=== PATIENT | male | born 1935 | race Caucasian/White ===

== ENCOUNTER 2017-09-27 02:18 | Inpatient (IN) | payer MEDICARE, OTHER ==
[~2017-09-27] VITALS: Ht 175.3 cm; Wt 103.3 kg
[2017-09-27] VITALS (11 sets, daily range): BP systolic 80–127; BP diastolic 53–75
[~2017-09-27 02:18] MED LIST: ATOR10TA87 PO; CARV-49 PO; CLOP75TA35 PO; FENO145T38 PO; FURO40TA4 PO; HYDR-565 PO; ISOS30TA9 PO; OMEP20TA5 PO; POTA10TA36 PO
[2017-09-27] MEDS ORDERED: fentaNYL/PF 50MCG/1 ML 2ML syringe IV ONE (03:45)
[2017-09-27] MEDS ORDERED: etomidate 2mg/ml inj. IV ONE (03:45)
[2017-09-27] MEDS ORDERED: rocuronium 10mg/ml inj IV ONE (03:45)
[2017-09-27] MEDS ORDERED: MIDAZolam 5mg/ml 2ml vial IV ONE (03:45)
[2017-09-27] MEDS ORDERED: midazolam 100mg in NS 100ml 100 ML IV ONE (03:45)
[2017-09-27] MEDS ORDERED: normal saline 1000ML IV soln IVB ONE (03:45)
[2017-09-27] MEDS ORDERED: tranexamic acid inj. 1,000 MG in normal saline 100ml IV soln 90 ML IV ONE (03:50)
[2017-09-27 04:24] LABS: CLARITY,URINE CLOUDY (Clear); COLOR,URINE YELLOW (Yellow); GLUCOSE, URINE NEGATIVE (Neg); KETONES,URINE NEGATIVE (Neg); LEUKOCYTE ESTERASE ,URINE LARGE (Neg); NITRITES, URINE POSITIVE (Neg); OCCULT BLOOD,URINE LARGE (Neg); PH,URINE 5.5 (4.8-8.0); PROTEIN,URINE 100 mg/dl (Neg); UROBILINOGEN,URINE >=8.0 E.U/dL (0.2-1.0)
[2017-09-27 04:31] LABS: UA COLLECTION TYPE NON-SPECIFIED
[2017-09-27 04:33] LABS: BACTERIA,URINE 4+ /HPF (Neg); RBC,URINE TNTC /HPF (0-2); SQUAMOUS EPITHELIAL CELL,UR FEW /LPF (FEW); WBC,URINE TNTC /HPF (0-4)
[2017-09-27 04:36] LABS: ABG BASE EXCESS 0.1 mmol/L (-2.0-3.0); ABG HCO3 29.4 mmol/L (22.0-26.0); ABG OXYGEN SATURATION 98.8 % (95-98); ABG PH (T) 7.244 (7.350-7.450); ABG PO2 (T) 172.5 mmHg (83-108); ALLEN'S TEST Positive; FCOHb 0.9 % (0.5-1.5); FMetHb 0.3 % (0.3-1.12); FO2Hb 97.6 % (94-100); MINUTE VOLUME 6 L/min; PATIENT TEMPERATURE 36.4; PEEP 5 cm H2O; RESPIRATORY RATE 14 b/min; RESPIRATORY RATE (OBSERVED) 14 b/min; TIDAL VOLUME 450 mL; TOTAL HEMOGLOBIN 13.9 G/dl (14.0-18.0)
[2017-09-27 04:37] LABS: ALANINE AMINOTRANSFERASE 42 U/L (12-78); ALBUMIN/GLOBULIN RATIO 0.7 (1.1-1.5); ALKALINE PHOSPHATASE 316 IU/L (46-116); ANION GAP 9 (8-16); ASPARTATE AMINO TRANSFERASE 47 U/L (10-37); BILIRUBIN,TOTAL 2.1 MG/DL (0.1-1.0); BLOOD UREA NITROGEN 19 MG/DL (7-18); BUN/CREATININE RATIO 16.2 (5.4-32.0); CALCIUM 9.4 MG/DL (8.5-10.1); CHLORIDE 101 MMOL/L (99-107); CREATININE 1.17 MG/DL (0.60-1.10); GLUCOSE 123 MG/DL (70-104); MAGNESIUM 1.6 MG/DL (1.5-2.4); POTASSIUM 3.6 MMOL/L (3.5-5.1); SODIUM 144 MMOL/L (135-145); TOTAL CARBON DIOXIDE 34.2 MMOL/L (24-32); TOTAL PROTEIN 7.2 G/DL (6.4-8.2); eGFR 60 ML/MIN
[2017-09-27] MEDS ORDERED: tranexamic acid 100mg/ml inj. ONE (04:42)
[2017-09-27 04:55] LABS: OCCULT BLOOD STOOL NEGATIVE (Neg)
[2017-09-27 04:57] LABS: BASOPHILS % (AUTO) 0 % (0-1); EOSINOPHILS % (AUTO) 0.5 % (0-6); HEMATOCRIT 39.5 % (42.0-52.0); HEMOGLOBIN 13.2 g/dl (14.0-17.9); LYMPHOCYTES # (AUTO) 0.1 X10'3 (1.1-4.8); LYMPHOCYTES % (AUTO) 5.3 % (21-51); MEAN CORPUSCULAR HEMOGLOBIN 31.4 PG (27.0-31.0); MEAN CORPUSCULAR HGB CONC 33.4 % (33.0-36.5); MEAN PLATELET VOLUME 8.5 FL (7.4-10.4); MONOCYTES % (AUTO) 0.4 % (2-12); NEUTROPHILS # (AUTO) 1.5 X10'3 (1.8-7.7); NEUTROPHILS % (AUTO) 93.8 % (42-75); PLATELET COUNT 82 X10'3 (140-440); WHITE BLOOD COUNT 1.6 X10'3 (4.5-11.0)
[2017-09-27 05:12] LABS: PLATELET ESTIMATE DECREASED; TOTAL CELLS COUNTED 50
[2017-09-27 05:13] LABS: ANISOCYTOSIS 1+; POIKILOCYTOSIS 1+; TOXIC VACUOLATION 2+
[2017-09-27] MEDS ORDERED: acetaminophen 650mg rectal suppository RC ONE (05:25)
[2017-09-27] MEDS ORDERED: acetaminophen 325mg rectal suppository RC ONE (05:25)
[2017-09-27] MEDS ORDERED: vancomycin/NS 1 GM ADD-VANTAGE 250 ML IV ONE (05:30)
[2017-09-27] MEDS ORDERED: piperacillin/tazo 3.375gm/50ml 50 ML IV ONE (05:30)
[2017-09-27] MEDS ORDERED: normal saline 1000ml 1,000 ML IV ONE (05:30)
[2017-09-27] MEDS ORDERED: normal saline 1000ML IV soln IV ONE (05:30)
[2017-09-27] MEDS ORDERED: sodium phosphate inj. 15 MMOL in dextrose 5%-water 150 ML IV PRN (06:25)
[2017-09-27] MEDS ORDERED: magnesium 2GM in 50ml NS 50 ML IV PRN (06:25)
[2017-09-27] MEDS ORDERED: acetaminophen 650mg rectal suppository RC PRN (06:25)
[2017-09-27] MEDS ORDERED: ipratropium/albuterol 3ml nebule NEB PRN (06:25)
[2017-09-27] MEDS ORDERED: ondansetron/PF 4mg/2ml inj IV PRN (06:25)
[2017-09-27] MEDS ORDERED: acetaminophen 325mg tablet PO PRN (06:25)
[2017-09-27] MEDS ORDERED: sodium phosphate inj. 30 MMOL in dextrose 5%-water 250 ML IV PRN (06:25)
[2017-09-27] MEDS ORDERED: magnesium 4gm in 100ml NS 100 ML IV PRN (06:25)
[2017-09-27] MEDS: ipratropium/albuterol 3ml nebule NEB SCH ×5 (07:00→23:22)
[2017-09-27] MEDS: piperacillin/tazo 3.375gm/50ml 50 ML IV SCH ×3 (07:07→19:49)
[2017-09-27] MEDS: NORepinephrine 8mg/ 250ml NS 250 ML IV SCH ×4 (07:13→23:30)
[2017-09-27] MEDS: docusate sodium 100mg/10ml UD cup PO SCH ×2 (07:31→19:48)
[2017-09-27] MEDS: pantoprazole 40 MG vial IV SCH (07:31)
[2017-09-27] MEDS: normal saline 1000ml 1,000 ML IV SCH ×3 (07:32→19:22)
[2017-09-27 07:35] LABS: INR 1.2 INR; PARTIAL THROMBOPLASTIN TIME 27 SECONDS (22-32); PROTHROMBIN TIME 11.9 SECONDS (9.0-12.0)
[2017-09-27 08:35] LABS: ABG BASE EXCESS -3.6 mmol/L (-2.0-3.0); ABG HCO3 24.1 mmol/L (22.0-26.0); ABG OXYGEN SATURATION 90.6 % (95-98); ABG PCO2 (T) 56.1 mmHg (35.0-48.0); ABG PH (T) 7.253 (7.350-7.450); ABG PO2 (T) 69.3 mmHg (83-108); FCOHb 0.7 % (0.5-1.5); FMetHb 0.1 % (0.3-1.12); FO2Hb 89.9 % (94-100); MINUTE VOLUME 9 L/min; PATIENT TEMPERATURE 37.5; PEEP 5 cm H2O; RESPIRATORY RATE 20 b/min; RESPIRATORY RATE (OBSERVED) 19 b/min; TIDAL VOLUME 450 mL; TOTAL HEMOGLOBIN 12.6 G/dl (14.0-18.0)
[2017-09-27] MEDS ORDERED: normal saline 1000ml 100 ML IV PRN (08:36)
[2017-09-27] MEDS ORDERED: normal saline 1000ml 250 ML IV PRN (08:36)
[2017-09-27] MEDS ORDERED: heparin 1,000 units/ml 10ml inj HE ONE ×2 (08:40)
[2017-09-27] MEDS ORDERED: epoetin 20,000 units/ml inj IV ONE (08:40)
[2017-09-27] MEDS ORDERED: APIX5TAB3 PO (10:41)
[2017-09-27] MEDS ORDERED: rocuronium bromide 100mg/10ml (10mg/ml) injection IV ONE (11:00)
[2017-09-27] MEDS ORDERED: etomidate 2mg/ml inj. ONE (11:00)
[2017-09-27] MEDS: FENTANYL-0.9 % NACL/PF 100 ML IV PRN (13:06)
[2017-09-27] MEDS: lactobacillus rhamnosus 10,000 MMU CELLS/CAPSULE PO SCH (19:49)
[2017-09-28] VITALS (23 sets, daily range): BP systolic 90–124; BP diastolic 60–85
[2017-09-28 02:20] LABS: ABG BASE EXCESS -4.8 mmol/L (-2.0-3.0); ABG HCO3 21.1 mmol/L (22.0-26.0); ABG OXYGEN SATURATION 97.6 % (95-98); ABG PCO2 (T) 42.6 mmHg (35.0-48.0); ABG PH (T) 7.315 (7.350-7.450); ABG PO2 (T) 102.5 mmHg (83-108); ALLEN'S TEST Positive; FCOHb 0.5 % (0.5-1.5); FMetHb 0.1 % (0.3-1.12); MINUTE VOLUME 11 L/min; PATIENT TEMPERATURE 37.3; PEEP 5 cm H2O; RESPIRATORY RATE 22 b/min; RESPIRATORY RATE (OBSERVED) 22 b/min; TIDAL VOLUME 450 mL; TOTAL HEMOGLOBIN 13.3 G/dl (14.0-18.0)
[2017-09-28] MEDS: ipratropium/albuterol 3ml nebule NEB SCH ×6 (02:24→22:28)
[2017-09-28 02:38] LABS: BASOPHILS % (AUTO) 0.1 % (0-1); EOSINOPHILS % (AUTO) 0.1 % (0-6); HEMATOCRIT 36.9 % (42.0-52.0); HEMOGLOBIN 12.1 g/dl (14.0-17.9); LYMPHOCYTES # (AUTO) 0.6 X10'3 (1.1-4.8); LYMPHOCYTES % (AUTO) 4.7 % (21-51); MEAN CORPUSCULAR HEMOGLOBIN 31.1 PG (27.0-31.0); MEAN CORPUSCULAR HGB CONC 32.7 % (33.0-36.5); MEAN CORPUSCULAR VOLUME 95.2 FL (78-98); MEAN PLATELET VOLUME 9.9 FL (7.4-10.4); MONOCYTES # (AUTO) 0.7 X10'3 (0-0.9); MONOCYTES % (AUTO) 5.3 % (2-12); NEUTROPHILS # (AUTO) 11.7 X10'3 (1.8-7.7); NEUTROPHILS % (AUTO) 89.8 % (42-75); PLATELET COUNT 110 X10'3 (140-440); RED BLOOD COUNT 3.88 X10'6 (4.70-6.10); RED CELL DISTRIBUTION WIDTH 17.4 % (11.5-14.5)
[2017-09-28 02:48] LABS: INR 1.3 INR; PARTIAL THROMBOPLASTIN TIME 33 SECONDS (22-32); PROTHROMBIN TIME 13.4 SECONDS (9.0-12.0)
[2017-09-28] MEDS: piperacillin/tazo 3.375gm/50ml 50 ML IV SCH ×4 (02:48→19:02)
[2017-09-28 02:52] LABS: ALANINE AMINOTRANSFERASE 49 U/L (12-78); ALBUMIN 2.1 G/DL (3.4-5.0); ALKALINE PHOSPHATASE 109 IU/L (46-116); ANION GAP 12 (8-16); ASPARTATE AMINO TRANSFERASE 62 U/L (10-37); BILIRUBIN,TOTAL 5.7 MG/DL (0.1-1.0); BLOOD UREA NITROGEN 21 MG/DL (7-18); BUN/CREATININE RATIO 13.2 (5.4-32.0); CALCIUM 7.9 MG/DL (8.5-10.1); CHLORIDE 110 MMOL/L (99-107); CREATININE 1.59 MG/DL (0.60-1.10); GLUCOSE 111 MG/DL (70-104); MAGNESIUM 1.3 MG/DL (1.5-2.4); POTASSIUM 3.9 MMOL/L (3.5-5.1); SODIUM 146 MMOL/L (135-145); TOTAL CARBON DIOXIDE 24.4 MMOL/L (24-32); eGFR 42 ML/MIN
[2017-09-28 03:14] LABS: PHOSPHORUS 4.3 MG/DL (2.3-4.5)
[2017-09-28 03:15] LABS: ALBUMIN/GLOBULIN RATIO 0.7 (1.1-1.5); TOTAL PROTEIN 5.3 G/DL (6.4-8.2)
[2017-09-28] MEDS: midazolam 100mg in NS 100ml 100 ML IV PRN (04:33)
[2017-09-28 05:14] LABS: ANISOCYTOSIS 1+; BURR CELLS FEW; PLATELET ESTIMATE DECREASED; POLYCHROMASIA FEW; TOTAL CELLS COUNTED 100
[2017-09-28] MEDS: normal saline 1000ml 1,000 ML IV SCH ×3 (05:42→18:43)
[2017-09-28] MEDS: NORepinephrine 8mg/ 250ml NS 250 ML IV SCH ×2 (05:42→16:48)
[2017-09-28] MEDS: mineral oil/petrolatum ophthal oint EACHEYE SCH ×3 (07:17→19:02)
[2017-09-28] MEDS: lactobacillus rhamnosus 10,000 MMU CELLS/CAPSULE PO SCH ×2 (07:17→19:02)
[2017-09-28] MEDS: docusate sodium 100mg/10ml UD cup PO SCH ×2 (07:17→19:02)
[2017-09-28] MEDS: pantoprazole 40 MG vial IV SCH (07:17)
[2017-09-28] MEDS: hydrocortisone sod succ/PF 100mg/2ml inj. IV SCH ×2 (13:44→19:02)
[2017-09-28] MEDS: FENTANYL-0.9 % NACL/PF 100 ML IV PRN (14:38)
[2017-09-28] MEDS ORDERED: VANCOMYCIN LEVEL IV NR (20:30)
[2017-09-29] VITALS (24 sets, daily range): BP systolic 79–106; BP diastolic 59–97
[2017-09-29] MEDS: hydrocortisone sod succ/PF 100mg/2ml inj. IV SCH ×4 (01:09→19:40)
[2017-09-29] MEDS: mineral oil/petrolatum ophthal oint EACHEYE SCH ×4 (01:09→19:40)
[2017-09-29] MEDS: piperacillin/tazo 3.375gm/50ml 50 ML IV SCH ×4 (01:09→19:40)
[2017-09-29 02:09] LABS: BASOPHILS % (AUTO) 0.1 % (0-1); EOSINOPHILS % (AUTO) 0.1 % (0-6); HEMATOCRIT 33.8 % (42.0-52.0); HEMOGLOBIN 11.3 g/dl (14.0-17.9); LYMPHOCYTES # (AUTO) 0.3 X10'3 (1.1-4.8); LYMPHOCYTES % (AUTO) 3.8 % (21-51); MEAN CORPUSCULAR HEMOGLOBIN 31.6 PG (27.0-31.0); MEAN CORPUSCULAR HGB CONC 33.5 % (33.0-36.5); MEAN CORPUSCULAR VOLUME 94.5 FL (78-98); MEAN PLATELET VOLUME 9.3 FL (7.4-10.4); MONOCYTES # (AUTO) 0.2 X10'3 (0-0.9); MONOCYTES % (AUTO) 2.3 % (2-12); NEUTROPHILS # (AUTO) 7.4 X10'3 (1.8-7.7); NEUTROPHILS % (AUTO) 93.7 % (42-75); PLATELET COUNT 99 X10'3 (140-440); RED BLOOD COUNT 3.57 X10'6 (4.70-6.10); RED CELL DISTRIBUTION WIDTH 17.3 % (11.5-14.5); WHITE BLOOD COUNT 7.9 X10'3 (4.5-11.0)
[2017-09-29 02:20] LABS: INR 1.2 INR; PARTIAL THROMBOPLASTIN TIME 33 SECONDS (22-32); PROTHROMBIN TIME 12.4 SECONDS (9.0-12.0)
[2017-09-29 02:24] LABS: ALANINE AMINOTRANSFERASE 36 U/L (12-78); ALBUMIN 1.8 G/DL (3.4-5.0); ALBUMIN/GLOBULIN RATIO 0.5 (1.1-1.5); ALKALINE PHOSPHATASE 89 IU/L (46-116); ANION GAP 12 (8-16); ASPARTATE AMINO TRANSFERASE 45 U/L (10-37); BILIRUBIN,TOTAL 4.1 MG/DL (0.1-1.0); BLOOD UREA NITROGEN 20 MG/DL (7-18); BUN/CREATININE RATIO 13.9 (5.4-32.0); CALCIUM 8.3 MG/DL (8.5-10.1); CHLORIDE 111 MMOL/L (99-107); CREATININE 1.44 MG/DL (0.60-1.10); GLUCOSE 157 MG/DL (70-104); MAGNESIUM 2.4 MG/DL (1.5-2.4); PHOSPHORUS 3.1 MG/DL (2.3-4.5); POTASSIUM 3.9 MMOL/L (3.5-5.1); SODIUM 149 MMOL/L (135-145); TOTAL CARBON DIOXIDE 25.6 MMOL/L (24-32); TOTAL PROTEIN 5.3 G/DL (6.4-8.2); eGFR 47 ML/MIN
[2017-09-29] MEDS: ipratropium/albuterol 3ml nebule NEB SCH ×6 (02:30→22:35)
[2017-09-29] MEDS: normal saline 1000ml 1,000 ML IV SCH ×2 (03:51→18:30)
[2017-09-29 04:36] LABS: ABG BASE EXCESS -2.7 mmol/L (-2.0-3.0); ABG HCO3 22.2 mmol/L (22.0-26.0); ABG OXYGEN SATURATION 94.7 % (95-98); ABG PCO2 (T) 38.2 mmHg (35.0-48.0); ABG PH (T) 7.381 (7.350-7.450); ALLEN'S TEST Positive; FCOHb 0.2 % (0.5-1.5); FO2Hb 94.5 % (94-100); MINUTE VOLUME 12 L/min; PATIENT TEMPERATURE 36.5; PEEP 5 cm H2O; RESPIRATORY RATE 22 b/min; RESPIRATORY RATE (OBSERVED) 22 b/min; TIDAL VOLUME 450 mL; TOTAL HEMOGLOBIN 12.4 G/dl (14.0-18.0)
[2017-09-29] MEDS: midazolam 100mg in NS 100ml 100 ML IV PRN (04:41)
[2017-09-29] MEDS ORDERED: lactulose 20gm/30ml cup PO PRN (06:25)
[2017-09-29] MEDS: pantoprazole 40 MG vial IV SCH (07:30)
[2017-09-29] MEDS: docusate sodium 100mg/10ml UD cup PO SCH ×2 (07:30→19:40)
[2017-09-29] MEDS: lactobacillus rhamnosus 10,000 MMU CELLS/CAPSULE PO SCH ×2 (07:30→19:40)
[2017-09-29] MEDS ORDERED: furosemide 40mg/4ml inj IV ONE (09:05)
[2017-09-29] MEDS: vancomycin inj 1,250 MG in normal saline 250ml IV soln 250 ML IV SCH ×2 (09:08→20:50)
[2017-09-29] MEDS: FENTANYL-0.9 % NACL/PF 100 ML IV PRN (14:03)
[2017-09-29 15:14] LABS: PREALBUMIN 9.4 MG/DL (19-36)
[2017-09-29] MEDS: apixaban 2.5mg tablet PO SCH (20:00)
[2017-09-29] MEDS: dexmedetomidin/NS 400mcg/100ml 100 ML IV SCH (21:16)
[2017-09-30] VITALS (24 sets, daily range): BP systolic 101–124; BP diastolic 70–84
[2017-09-30] MEDS: mineral oil/petrolatum ophthal oint EACHEYE SCH ×4 (01:07→20:48)
[2017-09-30] MEDS: hydrocortisone sod succ/PF 100mg/2ml inj. IV SCH ×4 (01:07→20:48)
[2017-09-30] MEDS: piperacillin/tazo 3.375gm/50ml 50 ML IV SCH ×4 (01:07→20:48)
[2017-09-30] MEDS: ipratropium/albuterol 3ml nebule NEB SCH ×6 (02:32→22:34)
[2017-09-30 03:27] LABS: INR 1.1 INR; PARTIAL THROMBOPLASTIN TIME 26 SECONDS (22-32); PROTHROMBIN TIME 11.6 SECONDS (9.0-12.0)
[2017-09-30 03:28] LABS: BASOPHILS % (AUTO) 0 % (0-1); EOSINOPHILS # (AUTO) 0.1 X10'3 (0-0.9); EOSINOPHILS % (AUTO) 1.1 % (0-6); HEMATOCRIT 35.5 % (42.0-52.0); HEMOGLOBIN 11.7 g/dl (14.0-17.9); LYMPHOCYTES # (AUTO) 0.5 X10'3 (1.1-4.8); LYMPHOCYTES % (AUTO) 6.6 % (21-51); MEAN CORPUSCULAR HEMOGLOBIN 31.2 PG (27.0-31.0); MEAN CORPUSCULAR HGB CONC 32.9 % (33.0-36.5); MEAN CORPUSCULAR VOLUME 94.9 FL (78-98); MEAN PLATELET VOLUME 9.6 FL (7.4-10.4); MONOCYTES # (AUTO) 0.3 X10'3 (0-0.9); MONOCYTES % (AUTO) 3.6 % (2-12); NEUTROPHILS # (AUTO) 6.2 X10'3 (1.8-7.7); NEUTROPHILS % (AUTO) 88.7 % (42-75); PLATELET COUNT 107 X10'3 (140-440); RED BLOOD COUNT 3.74 X10'6 (4.70-6.10); RED CELL DISTRIBUTION WIDTH 17.6 % (11.5-14.5)
[2017-09-30 03:36] LABS: ALANINE AMINOTRANSFERASE 42 U/L (12-78); ALBUMIN/GLOBULIN RATIO 0.6 (1.1-1.5); ALKALINE PHOSPHATASE 85 IU/L (46-116); ANION GAP 7 (8-16); ASPARTATE AMINO TRANSFERASE 43 U/L (10-37); BILIRUBIN,TOTAL 3.5 MG/DL (0.1-1.0); BLOOD UREA NITROGEN 26 MG/DL (7-18); BUN/CREATININE RATIO 18.1 (5.4-32.0); CALCIUM 8.7 MG/DL (8.5-10.1); CHLORIDE 112 MMOL/L (99-107); CREATININE 1.44 MG/DL (0.60-1.10); GLUCOSE 196 MG/DL (70-104); MAGNESIUM 2.2 MG/DL (1.5-2.4); PHOSPHORUS 2.6 MG/DL (2.3-4.5); POTASSIUM 3.3 MMOL/L (3.5-5.1); SODIUM 150 MMOL/L (135-145); TOTAL CARBON DIOXIDE 30.6 MMOL/L (24-32); TOTAL PROTEIN 5.6 G/DL (6.4-8.2); eGFR 47 ML/MIN
[2017-09-30] MEDS ORDERED: potassium Cl 40MEQ/NS 500ml 500 ML IV ONE (04:01)
[2017-09-30] MEDS: potassium Cl 40MEQ/NS 500ml 500 ML IV PRN (04:10)
[2017-09-30 04:51] LABS: ABG BASE EXCESS 0.4 mmol/L (-2.0-3.0); ABG OXYGEN SATURATION 95.8 % (95-98); ABG PCO2 (T) 51.6 mmHg (35.0-48.0); ABG PH (T) 7.336 (7.350-7.450); ALLEN'S TEST Positive; FCOHb 0.1 % (0.5-1.5); FMetHb 0.3 % (0.3-1.12); FO2Hb 95.4 % (94-100); MINUTE VOLUME 9 L/min; PATIENT TEMPERATURE 36.8; PEEP 5 cm H2O; RESPIRATORY RATE 0 b/min; RESPIRATORY RATE (OBSERVED) 16 b/min; TIDAL VOLUME 561 mL; TOTAL HEMOGLOBIN 12.8 G/dl (14.0-18.0)
[2017-09-30] MEDS: dexmedetomidin/NS 400mcg/100ml 100 ML IV SCH (05:57)
[2017-09-30] MEDS: lactobacillus rhamnosus 10,000 MMU CELLS/CAPSULE PO SCH ×2 (07:38→20:49)
[2017-09-30] MEDS: pantoprazole 40 MG vial IV SCH (07:38)
[2017-09-30] MEDS: docusate sodium 100mg/10ml UD cup PO SCH ×2 (07:38→20:49)
[2017-09-30] MEDS: apixaban 2.5mg tablet PO SCH (08:00)
[2017-09-30] MEDS: normal saline 1000ml 1,000 ML IV SCH ×2 (08:48→21:32)
[2017-09-30] MEDS: vancomycin inj 1,250 MG in normal saline 250ml IV soln 250 ML IV SCH (09:15)
[2017-09-30] MEDS: apixaban 5mg tablet PO SCH (20:00)
[2017-09-30] MEDS ORDERED: VANCOMYCIN LEVEL IV NR (20:30)
[2017-09-30] MEDS ORDERED: glucagon, human recombinant 1mg kit SUBCUT PRN (20:30)
[2017-09-30] MEDS ORDERED: dextrose 50%-water 50ml dispensing syringe IV PRN ×2 (20:30)
[2017-09-30] MEDS ORDERED: dextrose ORAL solution 15 GM/59 ML bottle PO PRN ×2 (20:30)
[2017-09-30] MEDS ORDERED: MESSAGE TO PHARMACY PO ONE (20:30)
[2017-09-30] MEDS: atorvastatin 10mg tablet PO SCH (20:49)
[2017-09-30] MEDS: carvedilol 6.25mg tablet PO SCH (20:49)
[2017-09-30] MEDS: insulin glargine (Lantus) pen - multi-dose SQ SCH (20:55)
[2017-09-30] MEDS: insulin Lispro (HumaLOG) vial - multi-dose SQ SCH (20:55)
[2017-10-01] VITALS (23 sets, daily range): BP systolic 94–135; BP diastolic 62–83
[2017-10-01] MEDS: FENTANYL-0.9 % NACL/PF 100 ML IV PRN (00:58)
[2017-10-01] MEDS: ipratropium/albuterol 3ml nebule NEB SCH ×6 (02:22→23:10)
[2017-10-01] MEDS: hydrocortisone sod succ/PF 100mg/2ml inj. IV SCH ×3 (02:53→15:53)
[2017-10-01] MEDS: mineral oil/petrolatum ophthal oint EACHEYE SCH ×4 (02:55→20:49)
[2017-10-01] MEDS: insulin Lispro (HumaLOG) vial - multi-dose SQ SCH ×2 (02:55→10:40)
[2017-10-01] MEDS: piperacillin/tazo 3.375gm/50ml 50 ML IV SCH ×2 (02:55→09:20)
[2017-10-01 03:03] LABS: BASOPHILS % (AUTO) 0.1 % (0-1); EOSINOPHILS % (AUTO) 0 % (0-6); HEMATOCRIT 36.2 % (42.0-52.0); HEMOGLOBIN 11.9 g/dl (14.0-17.9); LYMPHOCYTES # (AUTO) 0.5 X10'3 (1.1-4.8); LYMPHOCYTES % (AUTO) 6.8 % (21-51); MEAN CORPUSCULAR VOLUME 93.9 FL (78-98); MEAN PLATELET VOLUME 9.8 FL (7.4-10.4); MONOCYTES # (AUTO) 0.2 X10'3 (0-0.9); MONOCYTES % (AUTO) 3.1 % (2-12); NEUTROPHILS # (AUTO) 6.7 X10'3 (1.8-7.7); PLATELET COUNT 130 X10'3 (140-440); RED BLOOD COUNT 3.86 X10'6 (4.70-6.10); RED CELL DISTRIBUTION WIDTH 17.2 % (11.5-14.5); WHITE BLOOD COUNT 7.4 X10'3 (4.5-11.0)
[2017-10-01 03:13] LABS: INR 1.1 INR; PARTIAL THROMBOPLASTIN TIME 23 SECONDS (22-32); PROTHROMBIN TIME 11.6 SECONDS (9.0-12.0)
[2017-10-01 03:18] LABS: HEMOGLOBIN A1C 6.7 % (4.5-6.2)
[2017-10-01 03:21] LABS: ALANINE AMINOTRANSFERASE 44 U/L (12-78); ALBUMIN/GLOBULIN RATIO 0.6 (1.1-1.5); ALKALINE PHOSPHATASE 107 IU/L (46-116); ANION GAP 6 (8-16); ASPARTATE AMINO TRANSFERASE 39 U/L (10-37); BLOOD UREA NITROGEN 38 MG/DL (7-18); BUN/CREATININE RATIO 27.5 (5.4-32.0); CALCIUM 9.1 MG/DL (8.5-10.1); CHLORIDE 115 MMOL/L (99-107); CREATININE 1.38 MG/DL (0.60-1.10); GLUCOSE 205 MG/DL (70-104); MAGNESIUM 2.3 MG/DL (1.5-2.4); POTASSIUM 3.9 MMOL/L (3.5-5.1); SODIUM 152 MMOL/L (135-145); TOTAL CARBON DIOXIDE 31.3 MMOL/L (24-32); TOTAL PROTEIN 5.6 G/DL (6.4-8.2); eGFR 50 ML/MIN
[2017-10-01 03:36] LABS: ANISOCYTOSIS 1+; NUCLEATED RED BLOOD CELLS 2 /100WBC (0-0); PLATELET ESTIMATE DECREASED; TOTAL CELLS COUNTED 100
[2017-10-01 04:15] LABS: ABG BASE EXCESS 0.3 mmol/L (-2.0-3.0); ABG HCO3 25.1 mmol/L (22.0-26.0); ABG OXYGEN SATURATION 95.4 % (95-98); ABG PCO2 (T) 43.1 mmHg (35.0-48.0); ABG PH (T) 7.388 (7.350-7.450); ABG PO2 (T) 84.1 mmHg (83-108); ALLEN'S TEST Positive; FO2Hb 95.4 % (94-100); MINUTE VOLUME 10 L/min; PATIENT TEMPERATURE 37.9; PEEP 5 cm H2O; RESPIRATORY RATE 0 b/min; RESPIRATORY RATE (OBSERVED) 22 b/min; TIDAL VOLUME 489 mL; TOTAL HEMOGLOBIN 13.1 G/dl (14.0-18.0)
[2017-10-01] MEDS: apixaban 5mg tablet PO SCH ×2 (07:55→20:00)
[2017-10-01] MEDS ORDERED: furosemide 40mg tablet PO SCH (08:00)
[2017-10-01] MEDS: isosorbide dinitrate 30mg tablet PO SCH (09:20)
[2017-10-01] MEDS: pantoprazole 40 MG vial IV SCH (09:20)
[2017-10-01] MEDS: fenofibrate 145mg tablet PO SCH (09:20)
[2017-10-01] MEDS: Neutra Phos packet PO PRN ×2 (09:20→18:55)
[2017-10-01] MEDS: clopidogrel 75mg tablet PO SCH (09:20)
[2017-10-01] MEDS: carvedilol 6.25mg tablet PO SCH ×2 (09:20→20:48)
[2017-10-01] MEDS: lactobacillus rhamnosus 10,000 MMU CELLS/CAPSULE PO SCH ×2 (09:20→20:48)
[2017-10-01] MEDS: potassium chloride 10mEq ER tablet PO SCH (09:20)
[2017-10-01] MEDS: docusate sodium 100mg/10ml UD cup PO SCH ×2 (09:20→20:48)
[2017-10-01] MEDS ORDERED: bisacodyl 10mg suppository rectal RC STA (10:21)
[2017-10-01] MEDS: dexmedetomidin/NS 400mcg/100ml 100 ML IV SCH ×2 (11:28→20:56)
[2017-10-01] MEDS ORDERED: CefTRIAXone/D5W-Rocephin 1gm 50 ML IV ONE (14:30)
[2017-10-01] MEDS: insulin regular, human vial - multi-dose SQ SCH ×2 (15:09→21:13)
[2017-10-01] MEDS: methylnaltrexone br 12mg/0.6ml inj***SubQ only SQ SCH (15:10)
[2017-10-01] MEDS: atorvastatin 10mg tablet PO SCH (20:48)
[2017-10-01] MEDS: furosemide 40mg tablet PO SCH (20:48)
[2017-10-01] MEDS: insulin glargine (Lantus) pen - multi-dose SQ SCH (21:15)
[2017-10-02] VITALS (24 sets, daily range): BP systolic 101–140; BP diastolic 60–82
[2017-10-02] MEDS: hydrocortisone sod succ/PF 100mg/2ml inj. IV SCH ×4 (00:45→23:29)
[2017-10-02] MEDS: ipratropium/albuterol 3ml nebule NEB SCH ×6 (02:55→23:06)
[2017-10-02] MEDS: mineral oil/petrolatum ophthal oint EACHEYE SCH ×4 (02:55→20:00)
[2017-10-02] MEDS: insulin regular, human vial - multi-dose SQ SCH ×4 (02:57→21:39)
[2017-10-02 03:11] LABS: ABG BASE EXCESS 6.6 mmol/L (-2.0-3.0); ABG OXYGEN SATURATION 92.5 % (95-98); ABG PCO2 (T) 41.4 mmHg (35.0-48.0); ABG PH (T) 7.483 (7.350-7.450); ALLEN'S TEST Positive; FCOHb 0.1 % (0.5-1.5); FO2Hb 92.4 % (94-100); MINUTE VOLUME 10 L/min; PATIENT TEMPERATURE 38.6; PEEP 5 cm H2O; RESPIRATORY RATE 22 b/min; RESPIRATORY RATE (OBSERVED) 22 b/min; TIDAL VOLUME 450 mL; TOTAL HEMOGLOBIN 13.6 G/dl (14.0-18.0)
[2017-10-02 03:12] LABS: BASOPHILS % (AUTO) 0.1 % (0-1); EOSINOPHILS # (AUTO) 0.1 X10'3 (0-0.9); HEMOGLOBIN 12.6 g/dl (14.0-17.9); LYMPHOCYTES # (AUTO) 0.8 X10'3 (1.1-4.8); LYMPHOCYTES % (AUTO) 6.2 % (21-51); MEAN CORPUSCULAR HEMOGLOBIN 31.2 PG (27.0-31.0); MEAN CORPUSCULAR HGB CONC 33.1 % (33.0-36.5); MEAN CORPUSCULAR VOLUME 94.4 FL (78-98); MONOCYTES # (AUTO) 0.6 X10'3 (0-0.9); MONOCYTES % (AUTO) 4.4 % (2-12); NEUTROPHILS # (AUTO) 11.3 X10'3 (1.8-7.7); NEUTROPHILS % (AUTO) 88.3 % (42-75); PLATELET COUNT 154 X10'3 (140-440); RED BLOOD COUNT 4.02 X10'6 (4.70-6.10); WHITE BLOOD COUNT 12.9 X10'3 (4.5-11.0)
[2017-10-02 03:19] LABS: INR 1.2 INR; PARTIAL THROMBOPLASTIN TIME 22 SECONDS (22-32); PROTHROMBIN TIME 12.2 SECONDS (9.0-12.0)
[2017-10-02 03:23] LABS: ALANINE AMINOTRANSFERASE 42 U/L (12-78); ALBUMIN 2.1 G/DL (3.4-5.0); ALBUMIN/GLOBULIN RATIO 0.6 (1.1-1.5); ALKALINE PHOSPHATASE 121 IU/L (46-116); ANION GAP 6 (8-16); ASPARTATE AMINO TRANSFERASE 29 U/L (10-37); BILIRUBIN,TOTAL 1.7 MG/DL (0.1-1.0); BLOOD UREA NITROGEN 56 MG/DL (7-18); BUN/CREATININE RATIO 40.6 (5.4-32.0); CALCIUM 8.9 MG/DL (8.5-10.1); CHLORIDE 110 MMOL/L (99-107); CREATININE 1.38 MG/DL (0.60-1.10); GLUCOSE 152 MG/DL (70-104); MAGNESIUM 2.1 MG/DL (1.5-2.4); PHOSPHORUS 2.6 MG/DL (2.3-4.5); PREALBUMIN 16.9 MG/DL (19-36); SODIUM 152 MMOL/L (135-145); TOTAL CARBON DIOXIDE 35.8 MMOL/L (24-32); TOTAL PROTEIN 5.7 G/DL (6.4-8.2); eGFR 50 ML/MIN
[2017-10-02 03:27] LABS: POTASSIUM 2.9 MMOL/L (3.5-5.1)
[2017-10-02] MEDS: potassium Cl 40MEQ/250ML bag 250 ML IV ONE ×2 (03:58→04:01)
[2017-10-02] MEDS: dexmedetomidin/NS 400mcg/100ml 100 ML IV SCH ×3 (06:24→23:53)
[2017-10-02] MEDS: normal saline 1000ml 1,000 ML IV SCH (06:30)
[2017-10-02 07:18] LABS: BANDS% (MANUAL) 12 % (0-10); LYMPHOCYTES % (MANUAL) 5 % (21-51); MONOCYTES % (MANUAL) 6 % (2-12); NEUTROPHILS % (MANUAL) 74 % (42-75); TOTAL CELLS COUNTED 100
[2017-10-02 07:19] LABS: ANISOCYTOSIS 1+; METAMYLEOCYTES% (MANUAL) 3 % (0-0); NUCLEATED RED BLOOD CELLS 9 /100WBC (0-0); PLATELET ESTIMATE NORMAL
[2017-10-02] MEDS: docusate sodium 100mg/10ml UD cup PO SCH ×2 (08:00→20:00)
[2017-10-02] MEDS: apixaban 5mg tablet PO SCH ×2 (08:00→20:00)
[2017-10-02] MEDS: furosemide 40mg tablet PO SCH ×2 (08:09→20:00)
[2017-10-02] MEDS: lactobacillus rhamnosus 10,000 MMU CELLS/CAPSULE PO SCH ×2 (08:09→21:43)
[2017-10-02] MEDS: carvedilol 6.25mg tablet PO SCH ×2 (08:09→20:00)
[2017-10-02] MEDS: isosorbide dinitrate 30mg tablet PO SCH (08:09)
[2017-10-02] MEDS: CefTRIAXone/D5W-Rocephin 1gm 50 ML IV SCH (08:09)
[2017-10-02] MEDS: fenofibrate 145mg tablet PO SCH (08:09)
[2017-10-02] MEDS: clopidogrel 75mg tablet PO SCH (08:09)
[2017-10-02] MEDS: potassium chloride 10mEq ER tablet PO SCH (08:09)
[2017-10-02] MEDS: pantoprazole 40 MG vial IV SCH (08:10)
[2017-10-02] MEDS: potassium Cl 40MEQ/NS 500ml 500 ML IV PRN (10:33)
[2017-10-02] MEDS: insulin glargine (Lantus) pen - multi-dose SQ SCH (21:40)
[2017-10-02] MEDS: atorvastatin 10mg tablet PO SCH (21:43)
[2017-10-02] MEDS: acetaminophen 325mg tablet PO PRN (23:21)
[2017-10-03] VITALS (24 sets, daily range): BP systolic 84–126; BP diastolic 56–80
[2017-10-03] MEDS: mineral oil/petrolatum ophthal oint EACHEYE SCH ×4 (02:40→20:00)
[2017-10-03 02:50] LABS: BASOPHILS % (AUTO) 0.2 % (0-1); EOSINOPHILS # (AUTO) 0.1 X10'3 (0-0.9); EOSINOPHILS % (AUTO) 1.1 % (0-6); HEMATOCRIT 37.8 % (42.0-52.0); HEMOGLOBIN 12.8 g/dl (14.0-17.9); MEAN CORPUSCULAR HEMOGLOBIN 31.5 PG (27.0-31.0); MEAN CORPUSCULAR HGB CONC 33.8 % (33.0-36.5); MEAN CORPUSCULAR VOLUME 93.1 FL (78-98); MEAN PLATELET VOLUME 9.4 FL (7.4-10.4); MONOCYTES # (AUTO) 0.5 X10'3 (0-0.9); MONOCYTES % (AUTO) 3.9 % (2-12); NEUTROPHILS # (AUTO) 10.9 X10'3 (1.8-7.7); NEUTROPHILS % (AUTO) 86.8 % (42-75); PLATELET COUNT 164 X10'3 (140-440); RED BLOOD COUNT 4.06 X10'6 (4.70-6.10); RED CELL DISTRIBUTION WIDTH 17.1 % (11.5-14.5); WHITE BLOOD COUNT 12.6 X10'3 (4.5-11.0)
[2017-10-03] MEDS: insulin regular, human vial - multi-dose SQ SCH ×4 (02:55→21:53)
[2017-10-03 03:01] LABS: INR 1.2 INR; PARTIAL THROMBOPLASTIN TIME 22 SECONDS (22-32); PROTHROMBIN TIME 12.2 SECONDS (9.0-12.0)
[2017-10-03 03:03] LABS: ALANINE AMINOTRANSFERASE 32 U/L (12-78); ALBUMIN 2.1 G/DL (3.4-5.0); ALBUMIN/GLOBULIN RATIO 0.6 (1.1-1.5); ALKALINE PHOSPHATASE 128 IU/L (46-116); ANION GAP 5 (8-16); ASPARTATE AMINO TRANSFERASE 26 U/L (10-37); BILIRUBIN,TOTAL 1.4 MG/DL (0.1-1.0); BLOOD UREA NITROGEN 61 MG/DL (7-18); BUN/CREATININE RATIO 45.5 (5.4-32.0); CALCIUM 8.7 MG/DL (8.5-10.1); CHLORIDE 109 MMOL/L (99-107); CREATININE 1.34 MG/DL (0.60-1.10); GLUCOSE 155 MG/DL (70-104); PHOSPHORUS 2.7 MG/DL (2.3-4.5); POTASSIUM 3.4 MMOL/L (3.5-5.1); SODIUM 151 MMOL/L (135-145); TOTAL CARBON DIOXIDE 36.7 MMOL/L (24-32); TOTAL PROTEIN 5.5 G/DL (6.4-8.2); eGFR 51 ML/MIN
[2017-10-03] MEDS: ipratropium/albuterol 3ml nebule NEB SCH ×6 (03:14→23:18)
[2017-10-03 03:55] LABS: ABG BASE EXCESS 6.3 mmol/L (-2.0-3.0); ABG HCO3 29.4 mmol/L (22.0-26.0); ABG OXYGEN SATURATION 95.6 % (95-98); ABG PO2 (T) 84.1 mmHg (83-108); ALLEN'S TEST Positive; FCOHb 0.7 % (0.5-1.5); FO2Hb 94.9 % (94-100); MINUTE VOLUME 12 L/min; PATIENT TEMPERATURE 38.8; PEEP 5 cm H2O; RESPIRATORY RATE 18 b/min; RESPIRATORY RATE (OBSERVED) 27 b/min; TIDAL VOLUME 450 mL; TOTAL HEMOGLOBIN 13.3 G/dl (14.0-18.0)
[2017-10-03] MEDS: lactobacillus rhamnosus 10,000 MMU CELLS/CAPSULE PO SCH ×2 (07:55→21:59)
[2017-10-03] MEDS: fenofibrate 145mg tablet PO SCH (07:55)
[2017-10-03] MEDS: pantoprazole 40 MG vial IV SCH (07:55)
[2017-10-03] MEDS: furosemide 40mg tablet PO SCH ×2 (07:55→20:00)
[2017-10-03] MEDS: clopidogrel 75mg tablet PO SCH (07:55)
[2017-10-03] MEDS: carvedilol 6.25mg tablet PO SCH ×2 (07:55→20:00)
[2017-10-03] MEDS: isosorbide dinitrate 30mg tablet PO SCH (07:55)
[2017-10-03] MEDS: hydrocortisone sod succ/PF 100mg/2ml inj. IV SCH ×3 (07:56→23:53)
[2017-10-03] MEDS: CefTRIAXone/D5W-Rocephin 1gm 50 ML IV SCH (07:56)
[2017-10-03] MEDS: methylnaltrexone br 12mg/0.6ml inj***SubQ only SQ SCH (08:00)
[2017-10-03] MEDS: docusate sodium 100mg/10ml UD cup PO SCH ×2 (08:00→20:00)
[2017-10-03] MEDS: apixaban 5mg tablet PO SCH ×2 (08:00→20:00)
[2017-10-03] MEDS: potassium chloride 10mEq ER tablet PO SCH (08:26)
[2017-10-03] MEDS: potassium Cl 40MEQ/NS 500ml 500 ML IV PRN (09:21)
[2017-10-03] MEDS: dexmedetomidin/NS 400mcg/100ml 100 ML IV SCH ×2 (09:22→23:53)
[2017-10-03] MEDS: atorvastatin 10mg tablet PO SCH (21:00)
[2017-10-03] MEDS: insulin glargine (Lantus) pen - multi-dose SQ SCH (21:54)
[2017-10-04] VITALS (23 sets, daily range): BP systolic 87–135; BP diastolic 49–98
[2017-10-04] MEDS: dexmedetomidin/NS 400mcg/100ml 100 ML IV SCH (01:50)
[2017-10-04] MEDS: mineral oil/petrolatum ophthal oint EACHEYE SCH ×2 (02:13→07:35)
[2017-10-04] MEDS: acetaminophen 325mg tablet PO PRN (02:45)
[2017-10-04] MEDS: insulin regular, human vial - multi-dose SQ SCH ×2 (02:48→08:39)
[2017-10-04] MEDS: ipratropium/albuterol 3ml nebule NEB SCH ×5 (02:57→21:15)
[2017-10-04 03:22] LABS: BASOPHILS % (AUTO) 0 % (0-1); EOSINOPHILS # (AUTO) 0.2 X10'3 (0-0.9); EOSINOPHILS % (AUTO) 1.7 % (0-6); HEMATOCRIT 37.4 % (42.0-52.0); HEMOGLOBIN 12.6 g/dl (14.0-17.9); LYMPHOCYTES # (AUTO) 0.7 X10'3 (1.1-4.8); LYMPHOCYTES % (AUTO) 5.9 % (21-51); MEAN CORPUSCULAR HEMOGLOBIN 31.4 PG (27.0-31.0); MEAN CORPUSCULAR HGB CONC 33.6 % (33.0-36.5); MEAN CORPUSCULAR VOLUME 93.5 FL (78-98); MEAN PLATELET VOLUME 9.7 FL (7.4-10.4); MONOCYTES # (AUTO) 0.5 X10'3 (0-0.9); MONOCYTES % (AUTO) 4.2 % (2-12); NEUTROPHILS # (AUTO) 10.2 X10'3 (1.8-7.7); NEUTROPHILS % (AUTO) 88.2 % (42-75); PLATELET COUNT 156 X10'3 (140-440); RED CELL DISTRIBUTION WIDTH 17.6 % (11.5-14.5); WHITE BLOOD COUNT 11.6 X10'3 (4.5-11.0)
[2017-10-04 03:27] LABS: INR 1.1 INR; PARTIAL THROMBOPLASTIN TIME 22 SECONDS (22-32); PROTHROMBIN TIME 11.7 SECONDS (9.0-12.0)
[2017-10-04 03:31] LABS: ALANINE AMINOTRANSFERASE 28 U/L (12-78); ALBUMIN 2.1 G/DL (3.4-5.0); ALBUMIN/GLOBULIN RATIO 0.6 (1.1-1.5); ALKALINE PHOSPHATASE 129 IU/L (46-116); ANION GAP 6 (8-16); ASPARTATE AMINO TRANSFERASE 26 U/L (10-37); BILIRUBIN,TOTAL 1.3 MG/DL (0.1-1.0); BLOOD UREA NITROGEN 61 MG/DL (7-18); BUN/CREATININE RATIO 51.3 (5.4-32.0); CALCIUM 8.9 MG/DL (8.5-10.1); CHLORIDE 108 MMOL/L (99-107); CREATININE 1.19 MG/DL (0.60-1.10); GLUCOSE 163 MG/DL (70-104); MAGNESIUM 2.3 MG/DL (1.5-2.4); PHOSPHORUS 3.3 MG/DL (2.3-4.5); POTASSIUM 3.6 MMOL/L (3.5-5.1); SODIUM 150 MMOL/L (135-145); TOTAL CARBON DIOXIDE 35.8 MMOL/L (24-32); TOTAL PROTEIN 5.4 G/DL (6.4-8.2); eGFR 59 ML/MIN
[2017-10-04 03:40] LABS: ABG BASE EXCESS 7.4 mmol/L (-2.0-3.0); ABG HCO3 31.5 mmol/L (22.0-26.0); ABG OXYGEN SATURATION 94.7 % (95-98); ABG PH (T) 7.461 (7.350-7.450); ALLEN'S TEST Positive; FCOHb 0.6 % (0.5-1.5); FMetHb 0.3 % (0.3-1.12); FO2Hb 93.8 % (94-100); MINUTE VOLUME 7 L/min; PATIENT TEMPERATURE 38.8; PEEP 5 cm H2O; RESPIRATORY RATE (OBSERVED) 12 b/min; TOTAL HEMOGLOBIN 12.9 G/dl (14.0-18.0)
[2017-10-04] MEDS: normal saline 1000ml 1,000 ML IV SCH (07:01)
[2017-10-04] MEDS: docusate sodium 100mg/10ml UD cup PO SCH ×2 (07:20→20:00)
[2017-10-04] MEDS: CefTRIAXone/D5W-Rocephin 1gm 50 ML IV SCH (07:33)
[2017-10-04] MEDS: pantoprazole 40 MG vial IV SCH (07:33)
[2017-10-04] MEDS: hydrocortisone sod succ/PF 100mg/2ml inj. IV SCH ×2 (07:33→15:49)
[2017-10-04] MEDS: furosemide 40mg tablet PO SCH ×2 (07:35→20:00)
[2017-10-04] MEDS: carvedilol 6.25mg tablet PO SCH ×2 (07:35→20:00)
[2017-10-04] MEDS: isosorbide dinitrate 30mg tablet PO SCH (07:35)
[2017-10-04] MEDS: lactobacillus rhamnosus 10,000 MMU CELLS/CAPSULE PO SCH ×2 (07:35→20:00)
[2017-10-04] MEDS: clopidogrel 75mg tablet PO SCH (07:35)
[2017-10-04] MEDS: fenofibrate 145mg tablet PO SCH (07:35)
[2017-10-04] MEDS: apixaban 5mg tablet PO SCH ×2 (07:35→20:00)
[2017-10-04] MEDS: potassium chloride 10mEq ER tablet PO SCH (07:35)
[2017-10-04] MEDS ORDERED: racepinephrine 11.25mg/0.5ml nebule NEB PRN (10:30)
[2017-10-04] MEDS ORDERED: ipratropium/albuterol 3ml nebule NEB PRN (10:30)
[2017-10-04] MEDS: atorvastatin 10mg tablet PO SCH (21:00)
[2017-10-04] MEDS: insulin glargine (Lantus) pen - multi-dose SQ SCH (21:00)
[2017-10-05] VITALS (25 sets, daily range): BP systolic 107–153; BP diastolic 65–88
[2017-10-05] MEDS: hydrocortisone sod succ/PF 100mg/2ml inj. IV SCH ×3 (00:58→15:50)
[2017-10-05 02:49] LABS: BASOPHILS % (AUTO) 0 % (0-1); EOSINOPHILS # (AUTO) 0.2 X10'3 (0-0.9); EOSINOPHILS % (AUTO) 1.9 % (0-6); HEMATOCRIT 37.9 % (42.0-52.0); HEMOGLOBIN 12.4 g/dl (14.0-17.9); LYMPHOCYTES # (AUTO) 0.7 X10'3 (1.1-4.8); LYMPHOCYTES % (AUTO) 6.4 % (21-51); MEAN CORPUSCULAR HEMOGLOBIN 31.1 PG (27.0-31.0); MEAN CORPUSCULAR HGB CONC 32.8 % (33.0-36.5); MEAN PLATELET VOLUME 9.1 FL (7.4-10.4); MONOCYTES # (AUTO) 0.5 X10'3 (0-0.9); MONOCYTES % (AUTO) 4.4 % (2-12); NEUTROPHILS # (AUTO) 9.7 X10'3 (1.8-7.7); NEUTROPHILS % (AUTO) 87.3 % (42-75); PLATELET COUNT 173 X10'3 (140-440); RED BLOOD COUNT 3.99 X10'6 (4.70-6.10); WHITE BLOOD COUNT 11.2 X10'3 (4.5-11.0)
[2017-10-05] MEDS: ipratropium/albuterol 3ml nebule NEB SCH ×4 (03:01→21:04)
[2017-10-05 03:02] LABS: INR 1.2 INR; PARTIAL THROMBOPLASTIN TIME 23 SECONDS (22-32); PROTHROMBIN TIME 11.9 SECONDS (9.0-12.0)
[2017-10-05 03:14] LABS: ALANINE AMINOTRANSFERASE 24 U/L (12-78); ALBUMIN 2.3 G/DL (3.4-5.0); ALBUMIN/GLOBULIN RATIO 0.7 (1.1-1.5); ALKALINE PHOSPHATASE 92 IU/L (46-116); ANION GAP 5 (8-16); ASPARTATE AMINO TRANSFERASE 27 U/L (10-37); BILIRUBIN,TOTAL 1.6 MG/DL (0.1-1.0); BLOOD UREA NITROGEN 47 MG/DL (7-18); BUN/CREATININE RATIO 46.1 (5.4-32.0); CALCIUM 9.2 MG/DL (8.5-10.1); CHLORIDE 111 MMOL/L (99-107); CREATININE 1.02 MG/DL (0.60-1.10); GLUCOSE 99 MG/DL (70-104); MAGNESIUM 2.6 MG/DL (1.5-2.4); PHOSPHORUS 4.6 MG/DL (2.3-4.5); POTASSIUM 3.2 MMOL/L (3.5-5.1); SODIUM 154 MMOL/L (135-145); TOTAL CARBON DIOXIDE 37.6 MMOL/L (24-32); TOTAL PROTEIN 5.5 G/DL (6.4-8.2); eGFR 70 ML/MIN
[2017-10-05] MEDS ORDERED: potassium Cl 40MEQ/NS 500ml 500 ML IV ONE (04:17)
[2017-10-05] MEDS: docusate sodium 100mg/10ml UD cup PO SCH ×2 (07:38→20:00)
[2017-10-05] MEDS: methylnaltrexone br 12mg/0.6ml inj***SubQ only SQ SCH (07:39)
[2017-10-05] MEDS: CefTRIAXone/D5W-Rocephin 1gm 50 ML IV SCH (07:46)
[2017-10-05] MEDS: pantoprazole 40 MG vial IV SCH (07:46)
[2017-10-05] MEDS: carvedilol 6.25mg tablet PO SCH ×2 (07:50→23:14)
[2017-10-05] MEDS: potassium chloride 10mEq ER tablet PO SCH (07:50)
[2017-10-05] MEDS: apixaban 5mg tablet PO SCH ×2 (07:50→20:00)
[2017-10-05] MEDS: lactobacillus rhamnosus 10,000 MMU CELLS/CAPSULE PO SCH ×2 (07:50→20:04)
[2017-10-05] MEDS: isosorbide dinitrate 30mg tablet PO SCH (07:50)
[2017-10-05] MEDS: furosemide 40mg tablet PO SCH ×2 (07:50→23:14)
[2017-10-05] MEDS: fenofibrate 145mg tablet PO SCH (07:51)
[2017-10-05] MEDS: clopidogrel 75mg tablet PO SCH (07:51)
[2017-10-05] MEDS ORDERED: dexmedetomidin/NS 400mcg/100ml 100 ML IV SCH (10:40)
[2017-10-05] MEDS: dextrose 5%-water 1,000 ML IV SCH (10:54)
[2017-10-05] MEDS: insulin Lispro (HumaLOG) vial - multi-dose SQ SCH (14:02)
[2017-10-05] MEDS ORDERED: atorvastatin 10mg tablet PO ONE (20:15)
[2017-10-05] MEDS ORDERED: furosemide 40mg tablet PO ONE (20:20)
[2017-10-05] MEDS ORDERED: carvedilol 6.25mg tablet PO ONE (20:20)
[2017-10-05] MEDS: atorvastatin 10mg tablet PO SCH (21:00)
[2017-10-05] MEDS: insulin glargine (Lantus) pen - multi-dose SQ SCH (21:00)
[2017-10-06] VITALS (18 sets, daily range): BP systolic 100–145; BP diastolic 64–88
[2017-10-06] MEDS: hydrocortisone sod succ/PF 100mg/2ml inj. IV SCH ×2 (00:16→07:38)
[2017-10-06 01:47] LABS: INR 1.2 INR; PARTIAL THROMBOPLASTIN TIME 23 SECONDS (22-32); PROTHROMBIN TIME 11.9 SECONDS (9.0-12.0)
[2017-10-06 01:50] LABS: ALANINE AMINOTRANSFERASE 25 U/L (12-78); ALBUMIN 2.4 G/DL (3.4-5.0); ALBUMIN/GLOBULIN RATIO 0.8 (1.1-1.5); ALKALINE PHOSPHATASE 87 IU/L (46-116); ANION GAP 5 (8-16); ASPARTATE AMINO TRANSFERASE 28 U/L (10-37); BILIRUBIN,TOTAL 1.6 MG/DL (0.1-1.0); BLOOD UREA NITROGEN 34 MG/DL (7-18); BUN/CREATININE RATIO 34.7 (5.4-32.0); CALCIUM 9.2 MG/DL (8.5-10.1); CHLORIDE 108 MMOL/L (99-107); CREATININE 0.98 MG/DL (0.60-1.10); GLUCOSE 165 MG/DL (70-104); MAGNESIUM 2.6 MG/DL (1.5-2.4); PHOSPHORUS 3.8 MG/DL (2.3-4.5); POTASSIUM 3.1 MMOL/L (3.5-5.1); PREALBUMIN 19.9 MG/DL (19-36); SODIUM 152 MMOL/L (135-145); TOTAL CARBON DIOXIDE 39.3 MMOL/L (24-32); TOTAL PROTEIN 5.6 G/DL (6.4-8.2); eGFR 74 ML/MIN
[2017-10-06 01:59] LABS: BASOPHILS % (AUTO) 0 % (0-1); EOSINOPHILS # (AUTO) 0.3 X10'3 (0-0.9); HEMATOCRIT 40.6 % (42.0-52.0); HEMOGLOBIN 13.4 g/dl (14.0-17.9); LYMPHOCYTES # (AUTO) 0.6 X10'3 (1.1-4.8); MEAN CORPUSCULAR HEMOGLOBIN 31.4 PG (27.0-31.0); MEAN CORPUSCULAR HGB CONC 33.1 % (33.0-36.5); MEAN CORPUSCULAR VOLUME 95.1 FL (78-98); MONOCYTES # (AUTO) 0.5 X10'3 (0-0.9); MONOCYTES % (AUTO) 3.7 % (2-12); NEUTROPHILS # (AUTO) 12.5 X10'3 (1.8-7.7); NEUTROPHILS % (AUTO) 90.3 % (42-75); PLATELET COUNT 196 X10'3 (140-440); RED BLOOD COUNT 4.27 X10'6 (4.70-6.10); RED CELL DISTRIBUTION WIDTH 17.9 % (11.5-14.5); WHITE BLOOD COUNT 13.9 X10'3 (4.5-11.0)
[2017-10-06] MEDS ORDERED: potassium Cl 40MEQ/NS 500ml 500 ML IV ONE (02:06)
[2017-10-06] MEDS: ipratropium/albuterol 3ml nebule NEB SCH ×4 (03:24→20:32)
[2017-10-06] MEDS: normal saline 1000ml 1,000 ML IV SCH (06:30)
[2017-10-06] MEDS: dextrose 5%-water 1,000 ML IV SCH (06:45)
[2017-10-06] MEDS: CefTRIAXone/D5W-Rocephin 1gm 50 ML IV SCH (07:38)
[2017-10-06] MEDS: pantoprazole 40 MG vial IV SCH (07:38)
[2017-10-06] MEDS: potassium chloride 10mEq ER tablet PO SCH (07:39)
[2017-10-06] MEDS: furosemide 40mg tablet PO SCH (07:39)
[2017-10-06] MEDS: fenofibrate 145mg tablet PO SCH (07:39)
[2017-10-06] MEDS: carvedilol 6.25mg tablet PO SCH ×2 (07:39→20:47)
[2017-10-06] MEDS: isosorbide dinitrate 30mg tablet PO SCH (07:39)
[2017-10-06] MEDS: lactobacillus rhamnosus 10,000 MMU CELLS/CAPSULE PO SCH ×2 (07:39→20:48)
[2017-10-06] MEDS: clopidogrel 75mg tablet PO SCH (07:39)
[2017-10-06] MEDS: apixaban 5mg tablet PO SCH ×2 (08:00→20:00)
[2017-10-06] MEDS: docusate sodium 100mg/10ml UD cup PO SCH ×2 (08:00→20:00)
[2017-10-06 10:19] LABS: ALANINE AMINOTRANSFERASE 27 U/L (12-78); ALBUMIN 2.2 G/DL (3.4-5.0); ALBUMIN/GLOBULIN RATIO 0.7 (1.1-1.5); ALKALINE PHOSPHATASE 72 IU/L (46-116); ANION GAP 5 (8-16); ASPARTATE AMINO TRANSFERASE 29 U/L (10-37); BILIRUBIN,TOTAL 1.4 MG/DL (0.1-1.0); BLOOD UREA NITROGEN 32 MG/DL (7-18); BUN/CREATININE RATIO 33.3 (5.4-32.0); CALCIUM 8.7 MG/DL (8.5-10.1); CHLORIDE 111 MMOL/L (99-107); CREATININE 0.96 MG/DL (0.60-1.10); GLUCOSE 167 MG/DL (70-104); POTASSIUM 3.4 MMOL/L (3.5-5.1); SODIUM 154 MMOL/L (135-145); TOTAL CARBON DIOXIDE 38.2 MMOL/L (24-32); TOTAL PROTEIN 5.5 G/DL (6.4-8.2); eGFR 75 ML/MIN
[2017-10-06] MEDS: atorvastatin 10mg tablet PO SCH (21:21)
[2017-10-07 02:00] VITALS: BP 116/66
[2017-10-07] MEDS: ipratropium/albuterol 3ml nebule NEB SCH ×5 (02:41→19:57)
[2017-10-07 05:06] LABS: BASOPHILS % (AUTO) 0 % (0-1); EOSINOPHILS # (AUTO) 0.3 X10'3 (0-0.9); HEMATOCRIT 40.6 % (42.0-52.0); HEMOGLOBIN 13.4 g/dl (14.0-17.9); LYMPHOCYTES # (AUTO) 0.5 X10'3 (1.1-4.8); LYMPHOCYTES % (AUTO) 3.2 % (21-51); MEAN CORPUSCULAR HGB CONC 32.9 % (33.0-36.5); MEAN CORPUSCULAR VOLUME 94.3 FL (78-98); MONOCYTES # (AUTO) 0.5 X10'3 (0-0.9); MONOCYTES % (AUTO) 3.5 % (2-12); NEUTROPHILS # (AUTO) 14.4 X10'3 (1.8-7.7); NEUTROPHILS % (AUTO) 91.3 % (42-75); PLATELET COUNT 192 X10'3 (140-440); RED CELL DISTRIBUTION WIDTH 18.1 % (11.5-14.5); WHITE BLOOD COUNT 15.8 X10'3 (4.5-11.0)
[2017-10-07 05:23] LABS: INR 1.1 INR; PARTIAL THROMBOPLASTIN TIME 23 SECONDS (22-32); PROTHROMBIN TIME 11.4 SECONDS (9.0-12.0)
[2017-10-07 05:29] LABS: ALANINE AMINOTRANSFERASE 32 U/L (12-78); ALBUMIN 2.4 G/DL (3.4-5.0); ALBUMIN/GLOBULIN RATIO 0.8 (1.1-1.5); ALKALINE PHOSPHATASE 93 IU/L (46-116); ANION GAP 2 (8-16); ASPARTATE AMINO TRANSFERASE 36 U/L (10-37); BILIRUBIN,TOTAL 1.7 MG/DL (0.1-1.0); BLOOD UREA NITROGEN 32 MG/DL (7-18); BUN/CREATININE RATIO 27.1 (5.4-32.0); CHLORIDE 112 MMOL/L (99-107); CREATININE 1.18 MG/DL (0.60-1.10); GLUCOSE 144 MG/DL (70-104); MAGNESIUM 2.4 MG/DL (1.5-2.4); PHOSPHORUS 3.9 MG/DL (2.3-4.5); POTASSIUM 3.2 MMOL/L (3.5-5.1); TOTAL PROTEIN 5.6 G/DL (6.4-8.2); eGFR 59 ML/MIN
[2017-10-07 05:30] VITALS: BP 144/66
[2017-10-07 05:35] LABS: ANISOCYTOSIS 2+; PLATELET ESTIMATE NORMAL; SCHISTOCYTES FEW; STOMATOCYTES 1+
[2017-10-07 06:01] LABS: TOTAL CARBON DIOXIDE 41.3 MMOL/L (24-32)
[2017-10-07 06:02] LABS: SODIUM 155 MMOL/L (135-145)
[2017-10-07] MEDS: CefTRIAXone/D5W-Rocephin 1gm 50 ML IV SCH (08:09)
[2017-10-07] MEDS: docusate sodium 100mg/10ml UD cup PO SCH ×2 (08:11→20:04)
[2017-10-07] MEDS: fenofibrate 145mg tablet PO SCH (08:12)
[2017-10-07] MEDS: potassium chloride 10mEq ER tablet PO SCH (08:12)
[2017-10-07] MEDS: pantoprazole 40mg Tablet.DR PO SCH (08:12)
[2017-10-07] MEDS: carvedilol 6.25mg tablet PO SCH ×2 (08:12→20:03)
[2017-10-07] MEDS: clopidogrel 75mg tablet PO SCH (08:12)
[2017-10-07] MEDS: lactobacillus rhamnosus 10,000 MMU CELLS/CAPSULE PO SCH ×2 (08:39→20:03)
[2017-10-07] MEDS: apixaban 5mg tablet PO SCH ×2 (08:39→20:03)
[2017-10-07] MEDS: isosorbide dinitrate 30mg tablet PO SCH (10:30)
[2017-10-07 11:15] VITALS: BP 105/61
[2017-10-07 18:00] VITALS: BP 132/68
[2017-10-07] MEDS: atorvastatin 10mg tablet PO SCH (20:03)
[2017-10-07] MEDS: potassium Cl 40MEQ/NS 500ml 500 ML IV PRN (21:56)
[2017-10-07 22:30] VITALS: BP 93/56
[2017-10-07 23:51] LABS: ABG BASE EXCESS 7.2 mmol/L (-2.0-3.0); ABG HCO3 36.3 mmol/L (22.0-26.0); ABG OXYGEN SATURATION 95.9 % (95-98); ABG PCO2 (T) 75.9 mmHg (35.0-48.0); ABG PH (T) 7.297 (7.350-7.450); ABG PO2 (T) 89.9 mmHg (83-108); ALLEN'S TEST Positive; FCOHb 1.1 % (0.5-1.5); FMetHb 0.1 % (0.3-1.12); FO2Hb 94.7 % (94-100)
[2017-10-08] VITALS (8 sets, daily range): BP systolic 101–115; BP diastolic 43–62
[2017-10-08] MEDS ORDERED: furosemide 40mg/4ml inj IV ONE
[2017-10-08] MEDS ORDERED: furosemide 20 MG/2 ML vial IV ONE ×2 (00:10→00:45)
[2017-10-08] MEDS ORDERED: albumin (human) 25% 100 ML IV solution IV ONE (00:35)
[2017-10-08] MEDS: ipratropium/albuterol 3ml nebule NEB SCH ×4 (02:40→21:59)
[2017-10-08] MEDS: dextrose 5%-1/2 normal saline 1,000 ML IV SCH ×2 (03:16→13:39)
[2017-10-08 05:52] LABS: BASOPHILS % (AUTO) 0 % (0-1); EOSINOPHILS # (AUTO) 0.2 X10'3 (0-0.9); EOSINOPHILS % (AUTO) 1.8 % (0-6); HEMATOCRIT 35.1 % (42.0-52.0); HEMOGLOBIN 11.4 g/dl (14.0-17.9); LYMPHOCYTES # (AUTO) 0.3 X10'3 (1.1-4.8); LYMPHOCYTES % (AUTO) 3.1 % (21-51); MEAN CORPUSCULAR HEMOGLOBIN 31.2 PG (27.0-31.0); MEAN CORPUSCULAR HGB CONC 32.3 % (33.0-36.5); MEAN CORPUSCULAR VOLUME 96.4 FL (78-98); MEAN PLATELET VOLUME 9.3 FL (7.4-10.4); MONOCYTES # (AUTO) 0.3 X10'3 (0-0.9); MONOCYTES % (AUTO) 3.1 % (2-12); NEUTROPHILS # (AUTO) 9.9 X10'3 (1.8-7.7); PLATELET COUNT 148 X10'3 (140-440); RED BLOOD COUNT 3.65 X10'6 (4.70-6.10); RED CELL DISTRIBUTION WIDTH 18.8 % (11.5-14.5); WHITE BLOOD COUNT 10.7 X10'3 (4.5-11.0)
[2017-10-08 05:56] LABS: INR 1.1 INR; PARTIAL THROMBOPLASTIN TIME 25 SECONDS (22-32); PROTHROMBIN TIME 11.7 SECONDS (9.0-12.0)
[2017-10-08 06:27] LABS: ALANINE AMINOTRANSFERASE 25 U/L (12-78); ALBUMIN 3.2 G/DL (3.4-5.0); ALBUMIN/GLOBULIN RATIO 1.1 (1.1-1.5); ALKALINE PHOSPHATASE 126 IU/L (46-116); ANION GAP 2 (8-16); ASPARTATE AMINO TRANSFERASE 24 U/L (10-37); BILIRUBIN,TOTAL 1.5 MG/DL (0.1-1.0); BLOOD UREA NITROGEN 35 MG/DL (7-18); CALCIUM 9.2 MG/DL (8.5-10.1); CHLORIDE 112 MMOL/L (99-107); CREATININE 1.13 MG/DL (0.60-1.10); GLUCOSE 182 MG/DL (70-104); MAGNESIUM 2.6 MG/DL (1.5-2.4); PHOSPHORUS 3.2 MG/DL (2.3-4.5); POTASSIUM 3.7 MMOL/L (3.5-5.1); SODIUM 154 MMOL/L (135-145); TOTAL CARBON DIOXIDE 39.6 MMOL/L (24-32); TOTAL PROTEIN 6.1 G/DL (6.4-8.2); eGFR 62 ML/MIN
[2017-10-08] MEDS: normal saline 1000ml 1,000 ML IV SCH (06:30)
[2017-10-08] MEDS: potassium chloride 10mEq ER tablet PO SCH (07:46)
[2017-10-08] MEDS: CefTRIAXone/D5W-Rocephin 1gm 50 ML IV SCH (07:46)
[2017-10-08] MEDS: apixaban 5mg tablet PO SCH ×2 (07:46→20:35)
[2017-10-08] MEDS: carvedilol 6.25mg tablet PO SCH ×2 (07:46→20:35)
[2017-10-08] MEDS: isosorbide dinitrate 30mg tablet PO SCH (07:46)
[2017-10-08] MEDS: lactobacillus rhamnosus 10,000 MMU CELLS/CAPSULE PO SCH ×2 (07:46→20:34)
[2017-10-08] MEDS: pantoprazole 40mg Tablet.DR PO SCH (07:46)
[2017-10-08] MEDS: clopidogrel 75mg tablet PO SCH (07:46)
[2017-10-08] MEDS: fenofibrate 145mg tablet PO SCH (07:46)
[2017-10-08] MEDS: docusate sodium 100mg/10ml UD cup PO SCH ×2 (07:46→20:34)
[2017-10-08] MEDS ORDERED: ziprasidone IM 20mg inj **IM only IM ONE (08:35)
[2017-10-08] MEDS: atorvastatin 10mg tablet PO SCH (20:35)
[2017-10-09] MEDS: dextrose 5%-1/2 normal saline 1,000 ML IV SCH (02:40)
[2017-10-09 03:00] VITALS: BP 95/59
[2017-10-09] MEDS: ipratropium/albuterol 3ml nebule NEB SCH ×3 (04:07→15:37)
[2017-10-09 05:29] LABS: INR 1.2 INR; PARTIAL THROMBOPLASTIN TIME 25 SECONDS (22-32); PROTHROMBIN TIME 12.2 SECONDS (9.0-12.0)
[2017-10-09 05:40] LABS: ALANINE AMINOTRANSFERASE 25 U/L (12-78); ALBUMIN 2.7 G/DL (3.4-5.0); ALKALINE PHOSPHATASE 100 IU/L (46-116); ANION GAP 5 (8-16); ASPARTATE AMINO TRANSFERASE 26 U/L (10-37); BILIRUBIN,TOTAL 1.4 MG/DL (0.1-1.0); BLOOD UREA NITROGEN 26 MG/DL (7-18); BUN/CREATININE RATIO 26.3 (5.4-32.0); CHLORIDE 110 MMOL/L (99-107); CREATININE 0.99 MG/DL (0.60-1.10); GLUCOSE 154 MG/DL (70-104); MAGNESIUM 2.4 MG/DL (1.5-2.4); PHOSPHORUS 2.6 MG/DL (2.3-4.5); POTASSIUM 3.8 MMOL/L (3.5-5.1); PREALBUMIN 15.3 MG/DL (19-36); SODIUM 154 MMOL/L (135-145); TOTAL CARBON DIOXIDE 39.5 MMOL/L (24-32); TOTAL PROTEIN 5.5 G/DL (6.4-8.2); eGFR 73 ML/MIN
[2017-10-09 05:43] LABS: BASOPHILS % (AUTO) 0 % (0-1); EOSINOPHILS # (AUTO) 0.2 X10'3 (0-0.9); EOSINOPHILS % (AUTO) 1.6 % (0-6); HEMATOCRIT 33.7 % (42.0-52.0); HEMOGLOBIN 10.9 g/dl (14.0-17.9); LYMPHOCYTES # (AUTO) 0.4 X10'3 (1.1-4.8); LYMPHOCYTES % (AUTO) 4.2 % (21-51); MEAN CORPUSCULAR HEMOGLOBIN 31.1 PG (27.0-31.0); MEAN CORPUSCULAR HGB CONC 32.3 % (33.0-36.5); MEAN CORPUSCULAR VOLUME 96.2 FL (78-98); MEAN PLATELET VOLUME 9.8 FL (7.4-10.4); MONOCYTES # (AUTO) 0.4 X10'3 (0-0.9); MONOCYTES % (AUTO) 3.7 % (2-12); NEUTROPHILS # (AUTO) 8.8 X10'3 (1.8-7.7); NEUTROPHILS % (AUTO) 90.5 % (42-75); PLATELET COUNT 154 X10'3 (140-440); RED CELL DISTRIBUTION WIDTH 18.6 % (11.5-14.5); WHITE BLOOD COUNT 9.8 X10'3 (4.5-11.0)
[2017-10-09 06:00] VITALS: BP 100/66
[2017-10-09] MEDS: carvedilol 6.25mg tablet PO SCH (07:53)
[2017-10-09] MEDS: pantoprazole 40mg Tablet.DR PO SCH (07:53)
[2017-10-09] MEDS: CefTRIAXone/D5W-Rocephin 1gm 50 ML IV SCH (07:53)
[2017-10-09] MEDS: potassium chloride 10mEq ER tablet PO SCH (07:53)
[2017-10-09] MEDS: isosorbide dinitrate 30mg tablet PO SCH (07:53)
[2017-10-09] MEDS: lactobacillus rhamnosus 10,000 MMU CELLS/CAPSULE PO SCH (07:53)
[2017-10-09] MEDS: clopidogrel 75mg tablet PO SCH (07:53)
[2017-10-09] MEDS: apixaban 5mg tablet PO SCH (07:53)
[2017-10-09] MEDS: fenofibrate 145mg tablet PO SCH (07:53)
[2017-10-09] MEDS: docusate sodium 100mg/10ml UD cup PO SCH (07:54)
[2017-10-09 11:00] VITALS: BP 108/63
[2017-10-09] MEDS ORDERED: furosemide 40mg/4ml inj IV ONE (11:15)
[2017-10-09 15:00] VITALS: BP 99/60
== END 2017-10-09 17:51 | DRG 870 ==
LOC: ER 02:18 → ED HOLD 06:22 → CICU 2S 12:46 → PCU 3S 10-06 14:40 → ORTHO 4S 10-07 11:15 → PCU 3S 10-08 01:40
PROVIDERS: ATTEND Internal Medicine Critical Care Medicine
PROC: 5A1955Z Respiratory Ventilation, Greater than 96 Consecutive Hours (ICD-10-PCS; principal; 2017-09-27)
PROC: 0BH17EZ Insertion of Endotracheal Airway into Trachea, Via Natural or Artificial Opening (ICD-10-PCS; 2017-09-27)
PROC: 02HV33Z Insertion of Infusion Device into Superior Vena Cava, Percutaneous Approach (ICD-10-PCS; 2017-09-27)
PROC: 5A09357 Assistance with Respiratory Ventilation, Less than 24 Consecutive Hours, Continuous Positive Airway Pressure (ICD-10-PCS; 2017-10-08)
DX: A41.9 Sepsis, unspecified organism (principal); J96.00 Acute respiratory failure, unspecified whether with hypoxia or hypercapnia; J18.9 Pneumonia, unspecified organism; E87.4 Mixed disorder of acid-base balance; N17.9 Acute kidney failure, unspecified; D61.818 Other pancytopenia; E87.0 Hyperosmolality and hypernatremia; N39.0 Urinary tract infection, site not specified; I48.91 Unspecified atrial fibrillation; B96.3 Hemophilus influenzae [H. influenzae] as the cause of diseases classified elsewhere; F03.90 Unspecified dementia, unspecified severity, without behavioral disturbance, psychotic disturbance, mood disturbance, and anxiety; B96.20 Unspecified Escherichia coli [E. coli] as the cause of diseases classified elsewhere; I25.10 Atherosclerotic heart disease of native coronary artery without angina pectoris; R04.0 Epistaxis; R31.0 Gross hematuria; Z66 Do not resuscitate; I25.2 Old myocardial infarction; Z95.0 Presence of cardiac pacemaker; Z90.49 Acquired absence of other specified parts of digestive tract; Z88.5 Allergy status to narcotic agent; Z79.02 Long term (current) use of antithrombotics/antiplatelets; Z79.899 Other long term (current) drug therapy; Z87.891 Personal history of nicotine dependence
CPT/HCPCS: 36415; 36556; 36600; 70450; 71045; 71250; 74176; 80053; 80202; 81001; 82272; 82803; 82948; 83036; 83605; 83735; 83880; 84100; 84132; 84134; 84145; 84443; 84484; 85018; 85025; 85384; 85610; 85730; 86885; 86900; 86901; 87040; 87070; 87077; 87088; 87185; 87186; 87502; 87503; 92616; 93005; 94003; 94640; 94660; 94667; 94668; 94760; 96365; 96375; 97110; 97162; 97530; 97535; 99291; A6213; A6250; A6449; A7015; C1751; C1758; C9113; J0696; J1644; J1720; J1815; J1940; J2212; J2250; J2543; J3010; J3370; J3475; J3480; J3486; J3490; J7030; J7070; P9047